=== PATIENT | female | born 1970 | race Caucasian/White ===

== ENCOUNTER 2019-03-30 11:32 | Emergency (ER) | payer MEDICAID ==
[~2019-03-30] VITALS: Ht 165.1 cm; Wt 63.6 kg
--- NOTE | 2019-03-30 12:01 | NUR ---
advised providers about the status/presence of this pt in the room
--- NOTE | 2019-03-30 12:08 | NUR ---
provider at the bedside at this time
[2019-03-30] MEDS ORDERED: metoclopramide 5 mg/ml inj IV ONE (12:15)
[2019-03-30] MEDS ORDERED: diphenhydrAMINE 50 mg/ml inj IV ONE (12:15)
[2019-03-30] MEDS ORDERED: fentaNYL/PF 50MCG/1 ML 2ML syringe IV ONE (12:15)
--- NOTE | 2019-03-30 12:20 | NUR ---
pt out to ct via [facility] with product tester
[2019-03-30] MEDS ORDERED: ACET-3067 PO (13:23)
[2019-03-30] MEDS ORDERED: CYCL-1 PO (13:23)
[2019-03-30] MEDS ORDERED: ketorolac trometh. 30mg/ml inj. IV ONE (13:25)
[2019-03-30 13:51] VITALS: BP 99/61
== END 2019-03-30 13:53 | disposition home or self-care (01) ==
LOC: ER 11:32
DX: S13.4XXA Sprain of ligaments of cervical spine, initial encounter (principal); S33.5XXA Sprain of ligaments of lumbar spine, initial encounter; S90.31XA Contusion of right foot, initial encounter; S09.8XXA Other specified injuries of head, initial encounter; G43.909 Migraine, unspecified, not intractable, without status migrainosus; Z90.710 Acquired absence of both cervix and uterus; Z88.8 Allergy status to other drugs, medicaments and biological substances; Z79.899 Other long term (current) drug therapy; W10.8XXA Fall (on) (from) other stairs and steps, initial encounter; Y93.89 Activity, other specified; Y92.89 Other specified places as the place of occurrence of the external cause; Y99.8 Other external cause status
CPT/HCPCS: 70450; 72125; 72128; 72131; 73502; 73630; 96374; 96375; 99284; J1200; J1885; J2765; J3010

== ENCOUNTER 2020-03-22 01:52 | Emergency (ER) | payer SELFPAY ==
[~2020-03-22] VITALS: Ht 162.6 cm; Wt 68.0 kg
[~2020-03-22 01:52] MED LIST: CYCL-1 PO
--- NOTE | 2020-03-22 02:05 | NUR ---
MELISSA CALLEJAS MADE AWARE OF PT BEING TRAUMA LEVEL 2. NO NEW ORDERS. PT IS REFUSING EKG MONITORING, BLOOD DRAW, IV. PT IS NOT KEEPING THE BLOOD PRESSURE CUFF ON OR PULSE OXIMETER. REFUSING C-COLLAR PT STATES HAVING NECK PAIN. MELISSA CALLEJAS AWARE OF PT REFUSAL OF TX.
[2020-03-22 02:15] VITALS: BP 112/84
--- NOTE | 2020-03-22 02:30 | NUR ---
UNABLE TO COMPLETE TRAUMA FLOWSHEET Q15 DUE TO PT REFUSING VITAL SIGNS AND [employer] DOES NOT ALLOW CHARTING ON THIS DOCUMENT WITHOUT VITAL SIGNS. PT IS AOX4. SITTING IN BED. NO S/S ACUTE DISTRESS AT THIS TIME WITH [employer] OFFICER AT BEDSIDE
--- NOTE | 2020-03-22 03:00 | NUR ---
PT AMBUALTED TO BATHROOM WITH [employer] ESCORT. NO ACUTE S/S DISTRESS. NO ABNORMAL GAIT OR DIFFICULTY WALKING. WILL CONTINUE TO MONITOR PT.
[2020-03-22] MEDS ORDERED: normal saline 1000ML IV soln IVB ONE ×2 (03:25→04:00)
--- NOTE | 2020-03-22 03:47 | NUR ---
WHILE PT WAS TALKING WITH MELISSA CALLEJAS, PT REFUSING CT. PT ALLOWED ANOTHER RN TO PLACE IV AND FLUIDS BUT IS CONTINUING TO REFUSE VITAL SIGNS AND CT, CCOLLAR, MONITORING EQUIPTMENT AT THIS TIME. CONTINUES TO BE AOX4 AND NO COMPLAINTS OF PAIN. [employer] OFFICER CONTINUES TO BE AT BEDSIDE.
[2020-03-22] MEDS ORDERED: iohexol 300mg/ml 100ml inj. ONE (04:11)
[2020-03-22 04:15] LABS: BASOPHILS % (AUTO) 0.5 % (0-1); EOSINOPHILS # (AUTO) 0.2 X10'3 (0-0.9); EOSINOPHILS % (AUTO) 2.5 % (0-6); HEMATOCRIT 38.2 % (35.0-45.0); HEMOGLOBIN 12.9 g/dl (12.0-16.0); LYMPHOCYTES # (AUTO) 2.7 X10'3 (1.1-4.8); LYMPHOCYTES % (AUTO) 35.2 % (21-51); MEAN CORPUSCULAR HEMOGLOBIN 33.2 PG (27.0-31.0); MEAN CORPUSCULAR HGB CONC 33.7 g/dL (33.0-36.5); MEAN CORPUSCULAR VOLUME 98.5 FL (78-98); MEAN PLATELET VOLUME 7.9 FL (7.4-10.4); MONOCYTES # (AUTO) 0.3 X10'3 (0-0.9); MONOCYTES % (AUTO) 4.5 % (2-12); NEUTROPHILS # (AUTO) 4.5 X10'3 (1.8-7.7); NEUTROPHILS % (AUTO) 57.3 % (42-75); PLATELET COUNT 231 X10'3 (140-440); RED BLOOD COUNT 3.88 X10'6 (4.20-5.60); RED CELL DISTRIBUTION WIDTH 13.2 % (11.5-14.5); WHITE BLOOD COUNT 7.8 X10'3 (4.5-11.0)
[2020-03-22 04:28] LABS: ALANINE AMINOTRANSFERASE 26 U/L (12-78); ALBUMIN 3.8 G/DL (3.4-5.0); ALBUMIN/GLOBULIN RATIO 1.2 (1.1-1.5); ALKALINE PHOSPHATASE 42 IU/L (46-116); ANION GAP 9 (8-16); ASPARTATE AMINO TRANSFERASE 16 U/L (10-37); BILIRUBIN,TOTAL 0.1 MG/DL (0.1-1.0); BLOOD UREA NITROGEN 11 MG/DL (7-18); CALCIUM 8.3 MG/DL (8.5-10.1); CHLORIDE 110 MMOL/L (99-107); GLUCOSE 79 MG/DL (70-104); POTASSIUM 3.4 MMOL/L (3.5-5.1); SODIUM 145 MMOL/L (135-145); eGFR 59 ML/MIN
== END 2020-03-22 05:57 ==
LOC: ER 01:52
DX: S13.8XXA Sprain of joints and ligaments of other parts of neck, initial encounter (principal); F10.129 Alcohol abuse with intoxication, unspecified; G43.909 Migraine, unspecified, not intractable, without status migrainosus; G89.29 Other chronic pain; F17.200 Nicotine dependence, unspecified, uncomplicated; Z90.710 Acquired absence of both cervix and uterus; Z88.8 Allergy status to other drugs, medicaments and biological substances; Z79.899 Other long term (current) drug therapy; V89.2XXA Person injured in unspecified motor-vehicle accident, traffic, initial encounter; Y93.89 Activity, other specified; Y92.488 Other paved roadways as the place of occurrence of the external cause; Y99.8 Other external cause status; Y90.0 Blood alcohol level of less than 20 mg/100 ml
CPT/HCPCS: 36415; 72125; 74177; 80053; 85025; 96360; 99285; J7030; Q9967